=== PATIENT | female | born 1995 ===

== ENCOUNTER 2016-03-27 19:41 | Emergency (ER) | payer BC ==
[2016-03-27 20:01] VITALS: BP 130/65
--- NOTE | 2016-03-27 20:23 | UC ---
UC General HPI - HPI Summary HPI Summary: increased fatigue, sore thraot, swollen lymph nodes in throat and under left armpit. just cant get enough rest. low grade fever, mom has mono. - History of Current Complaint Chief Complaint: UCGeneralIllness Stated Complaint: MONO SYMPTOMS Time Seen by Provider: 03/27/16 20:09 Hx Obtained From: Patient Onset/Duration: Sudden Onset, Lasting Days Timing: Constant Onset Severity: Moderate Current Severity: Moderate Pain Intensity: 4 Associated Signs & Symptoms: Positive: Fever, Headache, Weakness - Allergy/Home Medications Allergies/Adverse Reactions: Allergies Allergy/AdvReac Type Severity Reaction Status Date / Time Bee Venom Allergy Severe Airway Verified 03/27/16 19:58 Obstruction Diphenhydramine Allergy Rash Verified 03/27/16 19:58 [From Benadryl] PMH/Surg Hx/FS Hx/Imm Hx Previously Healthy: Yes Endocrine History Of: Denies: Diabetes Cardiovascular History Of: Denies: Hypertension, Pacemaker/ICD - Surgical History Surgical History: Yes Surgery Procedure, Year, and Place: Cholecystectomy, 2009, [place] - Family History Known Family History: Positive: Other - mom currently has mono Negative: Respiratory Disease - Social History Alcohol Use: Occasionally Substance Use Type: None Smoking Status (MU): Never Smoked Tobacco - Immunization History Most Recent Influenza Vaccination: Not the 2015/2016 Season Review of Systems Constitutional: Fever, Fatigue Skin: Negative Eyes: Negative ENT: Negative Respiratory: Negative Cardiovascular: Negative Gastrointestinal: Negative Genitourinary: Negative Motor: Negative Neurovascular: Negative Musculoskeletal: Myalgia Neurological: Headache Psychological: Negative All Other Systems Reviewed And Are Negative: Yes Physical Exam Triage Information Reviewed: Yes Appearance: No Pain Distress, Well-Nourished, Ill-Appearing Vital Signs: Initial Vital Signs Temp 98.4 F 03/27/16 19:55 Pulse 90 03/27/16 19:55 Resp 16 03/27/16 19:55 BP 130/65 03/27/16 19:55 Pulse Ox 99 03/27/16 19:55 Vital Signs Reviewed: Yes Eye Exam: Normal Eyes: Positive: Conjunctiva Clear ENT: Positive: Pharyngeal erythema, TMs normal, Tonsillar swelling, Muffled/ hoarse voice Dental Exam: Normal Neck exam: Normal Neck: Positive: Supple, Nontender, Enlarged Nodes @ - bilateral cervical and left axilla Respiratory Exam: Normal Respiratory: Positive: Chest non-tender, Lungs clear, Normal breath sounds Cardiovascular Exam: Normal Cardiovascular: Positive: RRR, No Murmur, Pulses Normal Abdominal Exam: Normal Abdomen Description: Positive: Nontender, No Organomegaly, Soft Bowel Sounds: Positive: Present Musculoskeletal Exam: Normal Musculoskeletal: Positive: Strength Intact, ROM Intact, No Edema Neurological Exam: Normal Neurological: Positive: Alert, Muscle Tone Normal, Fatigued Psychological Exam: Normal Psychological: Positive: Age Appropriate Behavior Skin Exam: Normal Course/Dx - Course Course Of Treatment: hx obtained, exam performed, medications prescribed, lab work obtained. - Differential Dx - Multi-Symptom Provider Diagnoses: pharyngitis, lymphadenopathy, possible mono Discharge - Discharge Plan Condition: Stable Disposition: HOME Patient Education Materials: Mononucleosis (ED) Additional Instructions: We obtaine lab work today to check for mono. In th meantime, start the prednisone in the morning. get plenty of rest and increase fluid intake. We will call you with any positive results. follow up with any increase in symptoms.
[2016-03-28 10:37] LABS: EBV Response YES
[2016-03-28 10:50] LABS: Hematocrit 39 % (35-47); Hemoglobin 12.8 g/dl (12.0-16.0); Mean Corpuscular HGB Conc 33 g/dl (31-36); Mean Corpuscular Hemoglobin 30 pg (27-31); Mean Corpuscular Volume 89 fL (80-97); Mean Platelet Volume 8 um3 (7.4-10.4); Red Blood Count 4.34 10^6/ul (4.0-5.4); Red Cell Distribution Width 13 % (10.5-15); White Blood Count 10.5 10^3/ul (3.5-10.8)
[2016-03-28 11:05] LABS: Mono Internal Control QC Line Present
[2016-03-29 15:40] LABS: EBV Capsid Ag IgG Ab Negative (Negative); EBV Capsid Ag IgM Ab Negative (Negative)
== END 2016-03-27 20:48 | disposition home or self-care (01) ==
LOC: UCCORT 19:41
DX: J02.9 Acute pharyngitis, unspecified (principal); R59.1 Generalized enlarged lymph nodes; R50.9 Fever, unspecified; Z88.8 Allergy status to other drugs, medicaments and biological substances
CPT/HCPCS: 36415; 85025; 86308; 86664; 86665; 99212; G0463